=== PATIENT | male | born 1965 | race Caucasian/White ===

== ENCOUNTER 2017-10-13 18:42 | Emergency (ER) | payer OTHER ==
[~2017-10-13] VITALS: Ht 190.5 cm; Wt 104.3 kg
[2017-10-13] MEDS ORDERED: AMARYL2 MG PO (18:59)
[2017-10-13] MEDS ORDERED: LISINOPRIL10 MG PO (18:59)
[2017-10-13] MEDS ORDERED: METFORMIN HCL500 MG PO (18:59)
[2017-10-13] MEDS ORDERED: LIPITOR 20 MG T20 M1 PO (18:59)
[2017-10-13] MEDS ORDERED: LYRICA 50 MG50 MG PO (19:00)
[2017-10-13 19:45] LABS: ABSOLUTE BASOPHILS 0.1 thou/uL (0.0-0.2); ABSOLUTE EOSINOPHILS 0.1 thou/uL (0.0-0.7); ABSOLUTE LYMPHOCYTES 3.1 thou/uL (0.8-5.3); ABSOLUTE NEUTROPHILS 10.2 thou/uL (1.6-8.1); BASOPHILS 0.9 %; EOSINOPHILS 0.8 %; HEMATOCRIT 43.7 % (42.0-52.0); HEMOGLOBIN 15.2 gm/dL (14.0-18.0); LYMPHOCYTES 21.3 %; MCHC 34.8 g/dL (28.0-37.0); MCV 94.9 fL (80.0-100.0); MONOCYTES 6.8 %; MPV 7.2 fl. (7.2-11.1); NUCLEATED RBCS 0 /100WBC; PLATELET COUNT* 180 thou/uL (150-400); POLYS 70.2 %; RDW-CV 12.8 % (10.5-14.5); WBC 14.5 thou/uL (4.0-11.0)
[2017-10-13 19:53] LABS: CALCIUM 9.9 mg/dL (8.5-10.1); CREATININE 1.5 mg/dL (0.6-1.3)
[2017-10-13] MEDS ORDERED: NORVASC5 MG PO (20:31)
[2017-10-13] MEDS ORDERED: CLEOCIN HCL150 MG PO ×2 (20:31→20:33)
[2017-10-13] MEDS ORDERED: NORCO 5-325 TA1 EACH PO (20:33)
[2017-10-13 20:44] VITALS: BP 134/77
== END 2017-10-13 20:45 | disposition home or self-care (01) ==
LOC: M.ERS 18:42
PROVIDERS: Physician Assistant
DX: L03.115 Cellulitis of right lower limb (principal); E11.9 Type 2 diabetes mellitus without complications; E78.00 Pure hypercholesterolemia, unspecified; I10 Essential (primary) hypertension